=== PATIENT | female | born 1935 | race Caucasian/White ===

== ENCOUNTER 2018-08-16 11:05 | Emergency (ER) | payer OTHER ==
[~2018-08-16] VITALS: Ht 152.4 cm; Wt 56.8 kg
[2018-08-16] MEDS ORDERED: HYDROmorphONE 2 MG/ML SYG IM STA (11:13)
[2018-08-16] MEDS ORDERED: KETOROLAC 30 MG INJ IM STA (11:13)
[2018-08-16] MEDS ORDERED: ONDANSETRON (ODT) 4 MG TAB ODT STA (11:13)
[2018-08-16 11:21] VITALS: Ht 152.4 cm; Wt 56.8 kg
[2018-08-16 12:39] VITALS: BP 140/50; PULSE 87; RESP 19
[2018-08-16] MEDS ORDERED: IBUP-1542 PO (12:49)
--- NOTE | 2018-08-16 13:51 | ERD ---
ER Documentation Chief Complaint Chief Complaint bibtrenton [id number], home, back pain fall monday, unable to get out bed today HPI Patient is an 83-year-old female who presents after a fall. She was brought in by ambulance. She had a fall on Monday from ground-level when she was using her walker. She has had lower back pain since then. She came from home. 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 She could not get out of bed today because of pain. She has had no treatment as of yet for pain. ROS All systems reviewed and are negative except as per history of present illness. Medications Home Meds Active Scripts Ibuprofen* (Motrin*) 600 Mg Tab, 600 MG PO Q6H PRN for PAIN AND OR ELEVATED TEMP, #30 TAB Prov:RACHEL COX MD 08/16/18 Allergies Allergies: Coded Allergies: No Known Allergy (Unverified , 08/16/18) PMhx/Soc History of Surgery: Yes (THYROID SURGERY) Hx Miscellaneous Medical Probl: Yes (THYROID PROBLEMS) Hx Alcohol Use: No Hx Substance Use: No Hx Tobacco Use: No Smoking Status: Never smoker Physical Exam Vitals Vital Signs Date Temp Pulse Resp B/P (MAP) Pulse Ox O2 O2 Flow FiO2 Time Delivery Rate 08/16/18 87 19 140/50 99 Room Air 12:39 (80) 08/16/18 98.4 62 18 143/59 99 11:21 (87) Physical Exam Const: No acute distress Head: Atraumatic Eyes: Normal Conjunctiva ENT: Normal External Ears, Nose and Mouth. Neck: Full range of motion. No meningismus. Resp: Clear to auscultation bilaterally Cardio: Regular rate and rhythm, no murmurs Abd: Soft, non tender, non distended. Normal bowel sounds Skin: No petechiae or rashes Back: Diffuse back pain with tenderness to palpation without step-off or deformity noted Ext: No cyanosis, or edema Neur: Awake and alert Psych: Normal Mood and Affect Results 24 hrs Current Medications Medications Dose Sig/Ramo Start Time Status Last (Trade) Ordered Route PRN Stop Time Admin Dose Reason Admin 2 mg ONCE STAT 08/16/18 DC 08/16/18 Hydromorphone IM 11:13 11:27 HCl 08/16/18 11:14 (Dilaudid) Ketorolac 30 mg ONCE STAT 08/16/18 DC 08/16/18 Tromethamine IM 11:13 11:28 (Toradol) 08/16/18 11:14 Ondansetron 4 mg ONCE STAT 08/16/18 DC 08/16/18 HCl (Zofran ODT 11:13 11:28 Odt) 08/16/18 11:14 Procedures/MDM CT chest, abdomen, and pelvis showed no obvious acute fractures or traumatic injury per radiology. 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 Patient is a 83-year-old female who presents with back pain after a fall. She was given Dilaudid and Toradol. CT scan showed no serious traumatic injury. The patient will be discharged. She can return for any worsening symptoms. She should follow-up with the local clinics within 24-48 hours for reevaluation. Departure Diagnosis: Primary Impression: Fall Encounter type: initial encounter Qualified Codes: W19.XXXA - Unspecified fall, initial encounter Additional Impression: Back pain Back pain location: low back pain Chronicity: acute Back pain laterality: bilateral Sciatica presence: without sciatica Qualified Codes: M54.5 - Low back pain Condition: Fair Patient Instructions: Back Pain (Acute Or Chronic), Fall, Mechanical Referrals: Your doctor Additional Instructions: Llame al doctor MAANA y selma ivy AQUILES PARA DENTRO DE 1-2 MÁRQUEZ.Dgale a la secretaria que nosotros le instruimos hacer esta aquiles.Avise o llame si monet condicin se empeora antes de la aquiles. Regresa aqui si peor o no mejor. RACHEL COX MD Aug 16, 2018 13:51
== END 2018-08-16 14:20 | disposition home or self-care (01) ==
LOC: E/R 11:05
DX: M54.5 Low back pain (principal)
CPT/HCPCS: 71250; 74176; 96372; 99285; J1170; J1885